=== PATIENT | female | born 1945 | race Caucasian/White ===

== ENCOUNTER 2022-09-18 16:05 | Inpatient (IN) | payer MEDICARE, MEDICAID ==
[~2022-09-18] VITALS: Ht 165.1 cm; Wt 78.0 kg
[2022-09-18] MEDS ORDERED: IV NS 0.9% 1,000 ML BAG IV ONE (17:30)
[2022-09-18] MEDS ORDERED: ONDANSETRON HCL/PF 4 MG/2 ML VIAL IVP ONE (17:30)
[2022-09-18] MEDS ORDERED: MORPHINE SULFATE INJ 2 MG/ML DISP.SYRIN IV ONE ×2 (17:30→22:00)
[2022-09-18 17:52] LABS: BASOPHILS % (AUTO) 0.5 % (0.0-2.0); EOSINOPHILS % (AUTO) 0.9 % (0.0-6.0); HEMATOCRIT 39 % (33-45); HEMOGLOBIN 12.1 g/dL (11.5-14.8); LYMPHOCYTES % (AUTO) 17.4 % (20.0-44.0); MEAN CORPUSCULAR HGB CONC 31 g/dl (31.0-36.0); MEAN CORPUSCULAR VOLUME 76 fL (82-100); MONOCYTES # (AUTO) 0.6 K/uL (0.1-1.30); MONOCYTES % (AUTO) 9.6 % (2.0-12.0); NEUTROPHILS # (AUTO) 4.1 K/uL (1.8-8.9); NEUTROPHILS % (AUTO) 71.6 % (43.0-81.0); PLATELET COUNT (AUTO) 126 K/uL (150-450); RED BLOOD CELL COUNT(AUTO) 5.09 MIL/uL (4.0-5.2); WHITE BLOOD COUNT (AUTO) 5.7 K/uL (4.3-11.0)
[2022-09-18 18:44] LABS: CALCIUM, SERUM 9.5 mg/dL (8.5-10.1); CARBON DIOXIDE 24 mmol/L (21-32); CHLORIDE 107 mmol/L (98-107); GLUCOSE 95 mg/dL (74-106); POTASSIUM 3.7 mmol/L (3.5-5.1); SODIUM SERUM 141 mmol/L (136-145); UREA NITROGEN, BLOOD 25 mg/dL (7-18)
[2022-09-18 18:48] LABS: ALANINE AMINOTRANSFERASE 19 U/L (12-78); ALBUMIN 3.8 g/dL (3.4-5.0); ALKALINE PHOSPHATASE 108 U/L (46-116); ASPARTATE AMINOTRANSFERASE 33 U/L (15-37); BILIRUBIN,DIRECT 0.6 mg/dL (0.0-0.2); BILIRUBIN,TOTAL 1.8 mg/dL (0.2-1.0); LIPASE 380 U/L (73-393); TOTAL PROTEIN, SERUM 8.1 g/dL (6.4-8.2)
[2022-09-18] MEDS ORDERED: ONDANSETRON HCL/PF 4 MG/2 ML VIAL ONE ×2 (18:52→22:02)
[2022-09-18] MEDS ORDERED: MORPHINE SULFATE INJ 4 MG/ML DISP.SYRIN ONE (18:53)
[2022-09-18] MEDS ORDERED: IOHEXOL-300 100 ML VIAL IV ONE (19:39)
[2022-09-18] MEDS ORDERED: IV NS 0.9% 250 ML IV ONE (19:39)
--- NOTE | 2022-09-18 20:34 | NUR ---
rn note urine sample taken and sent to lab.
[2022-09-18 21:56] LABS: BILIRUBIN,URINE NEGATIVE (NEGATIVE); COLOR,URINE YELLOW (YELLOW); LEUKOCYTE ESTERASE ,URINE NEGATIVE (NEGATIVE); NITRITE, URINE NEGATIVE (NEGATIVE); PROTEIN,URINE TRACE mg/dl (NEGATIVE); UGLUCOSE NEGATIVE (NEGATIVE)
--- NOTE | 2022-09-18 21:58 | NUR ---
RN NOTE COVID SWAB DONE AND SENT TO LAB.
[2022-09-18] MEDS ORDERED: ONDANSETRON HCL/PF 4 MG/2 ML VIAL IV ONE (22:00)
[2022-09-18] MEDS ORDERED: MORPHINE SULFATE INJ 2 MG/ML DISP.SYRIN ONE (22:03)
[2022-09-18 22:11] LABS: BACTERIA,URINE Few /HPF (None Seen); RBC,URINE 0-2 /HPF (0-2); SQUAMOUS EPITHELIAL CELL,UR Few /HPF (None Seen); WBC,URINE NONE SEEN /HPF (0-3)
[2022-09-19] MEDS ORDERED: ACETAMINOPHEN 325 MG TABLET PO PRN (00:30)
[2022-09-19] MEDS ORDERED: IV NS 0.9% 1,000 ML IV SCH (00:30)
--- NOTE | 2022-09-19 00:49 | NUR ---
RN NOTE REPORT GIVEN TO Lopez WOLFE RN.
--- NOTE | 2022-09-19 00:54 | NUR ---
pt transported to 3rd floor via acls protocol
[2022-09-19 01:00] VITALS: BP 140/77
--- NOTE | 2022-09-19 01:30 | NUR ---
BIOCHEMISTRY TECHNOLOGIST ADMITTING NOTE PATIENT WAS TRANSFERRED FROM ER TO [facility] - AT 0100H; PATIENT IS A/O X 4, ABLE TO MAKE NEEDS KNOWN, CAN AMBULATE WITH ASSISTANCE; STABLE ON ROOM AIR, BREATHING EVENLY AND NO S/S OF DISTRESS NOTED; WITH IV ACCESS AT [employer] [facility] [employer] G#18 SALINE LOCK; HOOKED TO TELE MONITORING CURRENTLY READING A PACING 60S BPM; ORIENTED TO STAFF AND ROOM; SKIN ASSESSMENT WAS DONE AND NOTED INTACT SKIN; PATIENT'S BELONGINGS ACCOUNTED FOR; VITAL SIGNS TAKEN; SAFETY MEASURES IMPLEMENTED, BED LOCKED IN LOWEST POSITION, SIDE RAILS UP X 2, CALL LIGHT AND TABLE WITHIN REACH; WILL CONTINUE TO MONITOR THROUGHOUT SHIFT
[2022-09-19] MEDS: PANTOPRAZOLE 40 MG VIAL IV SCH ×3 (01:46→17:11)
[2022-09-19] MEDS: ENOXAPARIN SODIUM 40 MG/0.4 ML DISP.SYRIN SQ SCH ×2 (01:47→21:21)
[2022-09-19] MEDS: TRAZODONE 50 MG TABLET PO SCH ×2 (02:53→21:13)
--- NOTE | 2022-09-19 03:00 | NUR ---
APPLICATIONS TRAINER NOTE PATIENT ASKED FOR SLEEP MEDICATION BECAUSE PER PATIENT, SHE IS USUALLY TAKING MEDICATION FOR SLEEP. HOSPITALIST MADE AWARE AND ORDERED TRAZODONE 100MG PO Q HS SCHEDULED.
[2022-09-19 04:00] VITALS: BP 140/71
[2022-09-19] MEDS: MORPHINE SULFATE INJ 2 MG/ML DISP.SYRIN IV PRN (04:20)
[2022-09-19] MEDS ORDERED: LOPERAMIDE HCL (2 MG CAP) 2 MG CAPSULE PO PRN (05:30)
--- NOTE | 2022-09-19 06:55 | NUR ---
READING EFFICIENCY COURSE DIRECTOR CLOSING NOTE PATIENT IS A/O X 4, ABLE TO MAKE NEEDS KNOWN, CAN AMBULATE WITH ASSISTANCE; STABLE ON ROOM AIR, BREATHING EVENLY AND NO S/S OF DISTRESS NOTED; WITH IV ACCESS AT RAC G#18 RUNNING WITH NS AT 75 ML/HR, HOWEVER PT INSISTED ON REMOVING THE FLUIDS WHILE SLEEPING; HOOKED TO TELE MONITORING CURRENTLY READING A PACING 60S BPM; ADMINISTERED MEDICATIONS PRESCRIBED; PATIENT'S NEEDS ATTENDED; MONITORED PATIENT ACCORDINGLY; SAFETY MEASURES IMPLEMENTED, BED LOCKED IN LOWEST POSITION, SIDE RAILS UP X 2, CALL LIGHT AND TABLE WITHIN REACH; WILL ENDORSE TO AM NURSE FOR THEODORE.
--- NOTE | 2022-09-19 07:59 | NUR ---
FLOTATION TENDER OPENING NOTE PATIENT IS A/O X 4, ABLE TO MAKE NEEDS KNOWN, CAN AMBULATE WITH ASSISTANCE; STABLE ON ROOM AIR, BREATHING EVENLY AND NO S/S OF DISTRESS NOTED; WITH IV ACCESS AT [facility] G#18. HOOKED TO TELE MONITORING CURRENTLY READING A PACING 60S BPM; SAFETY MEASURES IMPLEMENTED, BED LOCKED IN LOWEST POSITION, SIDE RAILS UP X 2, CALL LIGHT AND TABLE WITHIN REACH; WILL CONTINUE TO MONITOR
[2022-09-19] MEDS ORDERED: POTA10CA43 PO (15:57)
[2022-09-19] MEDS ORDERED: LORA10TA7 PO (15:58)
[2022-09-19 16:00] VITALS: BP 129/71
[2022-09-19] MEDS ORDERED: MONT10TA22 PO (16:10)
[2022-09-19] MEDS ORDERED: PRED5TAB48 PO (16:10)
[2022-09-19] MEDS ORDERED: HYDR28.316 TP (16:10)
[2022-09-19] MEDS ORDERED: METO25TA4 PO (16:10)
[2022-09-19] MEDS ORDERED: ATOR20TA PO (16:10)
[2022-09-19] MEDS ORDERED: GABA-536 PO (16:10)
[2022-09-19] MEDS ORDERED: FURO40TA5 PO (16:10)
[2022-09-19] MEDS ORDERED: MAGN400T8 PO (16:18)
[2022-09-19] MEDS ORDERED: CYCL30DR EACHEYE ×2 (16:18)
[2022-09-19] MEDS ORDERED: LORA-259 PO (16:18)
[2022-09-19] MEDS ORDERED: PANT40TA49 PO (16:18)
[2022-09-19] MEDS ORDERED: OLOP2.5D12 EACHEYE (16:18)
[2022-09-19] MEDS ORDERED: CALC500T53 PO (16:18)
[2022-09-19] MEDS ORDERED: WARF4TAB72 PO (16:19)
[2022-09-19] MEDS ORDERED: DRON400T6 PO (17:13)
--- NOTE | 2022-09-19 18:40 | NUR ---
RN CLOSING NOTE PT AWAKE & RESTING COMFORTABLY IN BED. PT IS A/O X 4, RESPONSIVE AND FOLLOWS VERBAL COMMAND. PT IS IN RA W/ NO S & SX OF RESPIRATORY DISTRESS @ THIS TIME. PT IV PRESENT ON LEFT FOREARM #22G SALINE LOCK, PATENT, INTACT AND FLUSHES WELL W/ NO S&SX OF INFILTRATION @ SITE NOTED. GENERAL SUPERVISOR HAS BEEN DISCONTINUED BY HOSPITALIST. HOME MEDICATIONS GOT FROM PHARMACY, WAITING FOR HOSPITALIST TO RECONCILE . ALL DUE MEDS GIVEN. SAFETY MEASURES IN IS PLACE. BED IN LOWEST AND LOCKED POSITION. SIDE RAILS UP X 2. BEDSIDE TABLE AND CALL LIGHT IS EASY REACH. BED ALARM IS ON. WILL ENDORSE PT TO THE NEXT SHIFT FOR THEODORE.
[2022-09-19] MEDS: ONDANSETRON HCL/PF 4 MG/2 ML VIAL IVP PRN (19:41)
--- NOTE | 2022-09-19 19:41 | NUR ---
RN notes Pt is feeling nausea. administered zofran as ordered. Pt's daughter at the bedside. safety precautions is maintained. will continue to monitor.
[2022-09-19 20:00] VITALS: BP 132/69
--- NOTE | 2022-09-19 20:16 | NUR ---
CONTROLLER INSTRUCTOR Opening Note Pt in bed, awake, A/O x4, on RA. IV access LFA #22G SL. Fm at bedside. Safety measure in place, bed low, locked, side rails up x2, call light at reach, bed alarm on. Will cont to monitor pt.
--- NOTE | 2022-09-19 21:20 | NUR ---
SUPPLY PERSON Note Notified MD patient's request for Ativan. MD ordered Ativan 1mg tab PO one time.
[2022-09-19] MEDS ORDERED: LORAZEPAM 1 MG TABLET PO ONE (21:30)
--- NOTE | 2022-09-19 21:44 | NUR ---
RN notes Pt is feeling anxious and requesting ativan. administered ativan/po/one time as ordered. safety precautions is maintained. will continue to monitor.
[2022-09-19] MEDS: IV NS 0.9% 1,000 ML IV PRN (23:04)
[2022-09-20] MEDS: ONDANSETRON HCL/PF 4 MG/2 ML VIAL IVP PRN (05:34)
--- NOTE | 2022-09-20 05:34 | NUR ---
RN notes Pt is feeling nausea. no emesis. administered zofran/iv as ordered. safety precautions is maintained. will continue to monitor.
--- NOTE | 2022-09-20 07:00 | NUR ---
MS RN OPENING NOTES: RECEIVED PATIENT IN BED, ALERT/AWAKE AND ORIENTED X 4 AND ABLE TO MAKE NEEDS KNOWN. NO SOB OR CARDIAC DISTRESS NOTED.PT DENIES PAIN AT THIS TIME.ON CLEAR LIQUIDS. IV ACCESS ON RAC GAUGE 18 PATENT AND INTACT AND INFUSING NS 1L@M 75ML/HR. SAFETY MEASURES MAINTAIN. BED LOCKED AND IN LOWEST POSITION. SIDE RAILS UP X2. CALL LIGHT IN EASY REACH AND WILL MONITOR ACCORDINGLY.
[2022-09-20 07:03] LABS: BASOPHILS % (AUTO) 0.8 % (0.0-2.0); EOSINOPHILS % (AUTO) 3.4 % (0.0-6.0); HEMATOCRIT 34 % (33-45); HEMOGLOBIN 10.8 g/dL (11.5-14.8); LYMPHOCYTES # (AUTO) 0.9 K/uL (0.8-4.8); LYMPHOCYTES % (AUTO) 44.1 % (20.0-44.0); MEAN CORPUSCULAR HGB CONC 32 g/dl (31.0-36.0); MEAN CORPUSCULAR VOLUME 76 fL (82-100); MONOCYTES # (AUTO) 0.3 K/uL (0.1-1.30); MONOCYTES % (AUTO) 14.7 % (2.0-12.0); NEUTROPHILS # (AUTO) 0.7 K/uL (1.8-8.9); PLATELET COUNT (AUTO) 79 K/uL (150-450); RED BLOOD CELL COUNT(AUTO) 4.46 MIL/uL (4.0-5.2)
[2022-09-20 07:18] LABS: ALBUMIN 3.3 g/dL (3.4-5.0); BILIRUBIN,TOTAL 1.5 mg/dL (0.2-1.0); CALCIUM, SERUM 8.8 mg/dL (8.5-10.1); CREATININE 0.9 mg/dL (0.6-1.3); POTASSIUM 3.5 mmol/L (3.5-5.1); TOTAL PROTEIN, SERUM 7.2 g/dL (6.4-8.2)
--- NOTE | 2022-09-20 07:35 | NUR ---
DIGITAL CAMPAIGN SPECIALIST Closing Note Pt in bed, awake, A/O x4, on RA, no s/s of SOB/distress/pain. IV access LFA #22G SL, in place, patent, no s/s of infiltration/infection. Safety measure in place, bed low, locked, side rails up x2, call light at reach, bed alarm on. Endorse to the next shift nurse to cont to monitor pt.
[2022-09-20] MEDS: PANTOPRAZOLE 40 MG VIAL IV SCH (08:49)
[2022-09-20] MEDS ORDERED: LORAZEPAM 1 MG TABLET PO PRN (10:00)
[2022-09-20] MEDS: DRONEDARONE HYDROCHLORIDE 400 MG TABLET PO SCH (10:31)
[2022-09-20] MEDS: ATORVASTATIN 10 MG TABLET PO SCH (10:31)
--- NOTE | 2022-09-20 12:20 | NUR ---
RN NOTES: CALLED LAB ([facility]) FOR STOOL SPECIMEN BLEACHER PULP.
[2022-09-20] MEDS: MORPHINE SULFATE INJ 2 MG/ML DISP.SYRIN IV PRN (13:05)
[2022-09-20] MEDS: GABAPENTIN 300 MG CAPSULE PO SCH (16:33)
[2022-09-20] MEDS: WARFARIN SODIUM 5 MG TABLET PO SCH (16:41)
[2022-09-20] MEDS ORDERED: Medication Not On Formulary EA (Cyclosporine (Restasis) 1 DROP) EACHEYE SCH (17:00)
[2022-09-20] MEDS ORDERED: PANTOPRAZOLE 40 MG/PACK PACK PO SCH (17:00)
--- NOTE | 2022-09-20 18:41 | NUR ---
MS RN CLOSING NOTES: PATIENT IN BED AWAKE, ALERT AND ORIENTED X 4 AND ABLE TO MAKE NEESS KNOWN. NO SOB OR CARDIAC DISTRESS NOTED. ON PAIN MANAGEMENT ORDERED. NO NAUSEA OR VOMITING REPORTED. IV ACCESS ON RIGHT AC PATENT INTACT AND INFUSING NS 1L @75ML/HR.SAFETY MEASURES MAINTAINED: BED LOCKED AND IN LOWEST POSITION, SIDE RAILS UP X 2. CALL LIGHT IN EASY REACH FOR HELP. WILL ENDORSE TO [facility] SHIFT FOR CONTINUITY OF CARE.
[2022-09-20 20:00] VITALS: BP 135/73
[2022-09-20 21:03] LABS: EOSINOPHILS % (MANUAL) 8 % (0-4); LYMPHOCYTES % (MANUAL) 44 % (16-48); MONOCYTES % (MANUAL) 2 % (0-11.0); NEUTROPHILS % (MANUAL) 46 (42-76)
[2022-09-20] MEDS: METOPROLOL SUCCINATE 25 MG TAB.SR.24H PO SCH (21:04)
[2022-09-20] MEDS: TRAZODONE 50 MG TABLET PO SCH (21:05)
--- NOTE | 2022-09-20 22:06 | NUR ---
FLIGHT COMMUNICATIONS SPECIALIST Opening Note Pt in bed, awake, A/O x4, on RA. IV access on RAC #18G infusing NS @ 75 ml/h. Safety measures in place, bed low, bed locked, side rails up x2, call light at reach. Will cont to monitor pt.
[2022-09-21] MEDS: MORPHINE SULFATE INJ 2 MG/ML DISP.SYRIN IV PRN (01:06)
--- NOTE | 2022-09-21 01:06 | NUR ---
RN notes Pt is complaining of abd pain and requesting pain med. administered morphine as ordered for pain. vs is stable. safety precautions is maintained. will continue to monitor.
--- NOTE | 2022-09-21 07:00 | NUR ---
MS RN OPENING NOTES: RECEIVED PATIENT IN BED, ALERT/AWAKE AND ORIENTED X 4 AND ABLE TO MAKE NEEDS KNOWN. NO SOB OR CARDIAC DISTRESS NOTED.PT DENIES PAIN AT THIS TIME. IV ACCESS ON RFA GAUGE 22 PATENT AND INTACT AND INFUSING NS 1L@M 75ML/HR. SAFETY MEASURES MAINTAIN. BED LOCKED AND IN LOWEST POSITION. SIDE RAILS UP X2. CALL LIGHT IN EASY REACH AND WILL MONITOR ACCORDINGLY.
[2022-09-21 07:09] LABS: CALCIUM, SERUM 8.7 mg/dL (8.5-10.1); CREATININE 0.9 mg/dL (0.6-1.3); POTASSIUM 3.3 mmol/L (3.5-5.1)
[2022-09-21 08:00] VITALS: BP 131/58
[2022-09-21] MEDS: DRONEDARONE HYDROCHLORIDE 400 MG TABLET PO SCH (08:46)
[2022-09-21] MEDS: MONTELUKAST SODIUM (10MG) 10 MG TABLET PO SCH (08:46)
[2022-09-21] MEDS: GABAPENTIN 300 MG CAPSULE PO SCH ×2 (08:47→17:00)
[2022-09-21] MEDS: ATORVASTATIN 10 MG TABLET PO SCH (08:47)
[2022-09-21] MEDS: CALCIUM CARBONATE (1250) 500 MG TABLET PO SCH (08:47)
[2022-09-21] MEDS: PANTOPRAZOLE 40 MG TABLET.DR PO SCH (08:47)
[2022-09-21] MEDS: MAGNESIUM OXIDE 400 MG TABLET PO SCH (08:48)
[2022-09-21] MEDS: OLOPATADINE HCL 0.1% OPHTH BOTTLE EACHEYE SCH (08:49)
[2022-09-21] MEDS: PHENYLEPHRINE/SHK LV/MO/PET,WH 30 GM TUBE RC SCH (08:50)
[2022-09-21] MEDS ORDERED: DRONEDARONE HYDROCHLORIDE 400 MG TABLET PO SCH (09:00)
--- NOTE | 2022-09-21 09:00 | NUR ---
RN NOTES: PATIENT STATED SHE HAD A GOOD BREAKFAST, SEEN PATIENT EATING SCRAMBLED EGG.
[2022-09-21] MEDS ORDERED: METOCLOPRAMIDE HCL 10 MG/2 ML VIAL IV ONE (11:00)
[2022-09-21] MEDS ORDERED: POTASSIUM CHLORIDE 20 MEQ TAB.PRT.SR PO SCH (11:00)
--- NOTE | 2022-09-21 11:25 | NUR ---
RN NOTES: SEEN AND EXAMINED BY DR RIVERA AND NOTED THAT PT IS NAUSEATED, DR RIVERA ORDERED ONE DOSE REGLAN IV. INFORMED DR RIVERA THAT PT HAD GOOD APPETITE AND ATE BREAKFAST BUT AFTER TAKING MEDS SHE DIDN'T FEEL GOOD. PT WILL BE MONITORED AFTER LUNCH TO SEE IF THERE'S NAUSEA OR VOMITING THEN SHE WILL BE DC TODAY.
--- NOTE | 2022-09-21 13:18 | NUR ---
RN NOTES: PT DID NOT EAT LUNCH. I EXPLAINED TO HER THAT I GAVE METOCLOPRAMIDE IV TO HER TO CEASE NAUSEA AND VOMITING. BECAUSE PT STATED THAT IF SHE WILL VOMIT SHE WILL FEEL BETTER. PT IS VERY CONCERNED ABOUT BEING DC TODAY BEC HIS SON IS WORKING. INFORMED DR DONNIE RIVERA AND STATED "OKAY" WILL MONITOR PT ACCORDINGLY.
[2022-09-21 16:00] VITALS: BP 134/64
[2022-09-21] MEDS: WARFARIN SODIUM 5 MG TABLET PO SCH (17:26)
[2022-09-21] MEDS: METOCLOPRAMIDE HCL 10 MG/10 ML UDC PO SCH (17:30)
--- NOTE | 2022-09-21 17:55 | NUR ---
RN NOTES: PATIENT REFUSED DINNER, GABAPENTIN AND LIQUID REGLAN.
--- NOTE | 2022-09-21 18:49 | NUR ---
MS RN CLOSING NOTES: PATIENT IN BED AWAKE, ALERT AND ORIENTED X 4 AND ABLE TO MAKE NEEDS KNOWN. NO SOB OR CARDIAC DISTRESS NOTED. ON PAIN MANAGEMENT ORDERED. NO N/V AT THIS TIME,HAVE PRN FOR NAUSEA ORDERED. IV ACCESS ON RIGHT FOREARM GAUGE 22 PATENT INTACT AND INFUSING NS 1L @75ML/HR.SAFETY MEASURES MAINTAINED: BED LOCKED AND IN LOWEST POSITION, SIDE RAILS UP X 2. CALL LIGHT IN EASY REACH FOR HELP. WILL ENDORSE TO BEVERAGE DISTILLER FOR CONTINUITY OF CARE.
--- NOTE | 2022-09-21 19:31 | NUR ---
MS MUCK MINER BLASTING INITIAL NOTES Received pt in bed awake and alert , no signs of any discomfort or any distress noted. Re- oriented where she at and how to used the call light system and at the same time encourage her to use it if she needs some help or needs the nurse. IVF Ns at 75ml/hr infusing at this time on her right forearm patent and intact. Kept her warm and comfortable at all times. bed in low and lock in position with side rails x2 up and bed alarm set for safety. Will continue monitoring.
[2022-09-21 20:00] VITALS: BP 142/68
[2022-09-21] MEDS: TRAZODONE 50 MG TABLET PO SCH (21:47)
[2022-09-21] MEDS: METOPROLOL SUCCINATE 25 MG TAB.SR.24H PO SCH (22:00)
--- NOTE | 2022-09-22 | NUR ---
MS KALA NOTES Checked patient she's sleeping at this time , no signs of any discomfort noted. Breathing even and non-labored. IVF hold at this time per pt requested to helped her to sleep . Pt tolerated po well no aspiration noted. Kept her warm and comfortable at all times. will continue monitoring. place call light at reach.
[2022-09-22 07:17] LABS: CALCIUM, SERUM 8.6 mg/dL (8.5-10.1); CARBON DIOXIDE 26 mmol/L (21-32); CHLORIDE 107 mmol/L (98-107); CREATININE 0.7 mg/dL (0.6-1.3); GLUCOSE 84 mg/dL (74-106); POTASSIUM 3.3 mmol/L (3.5-5.1); SODIUM SERUM 140 mmol/L (136-145); UREA NITROGEN, BLOOD 8 mg/dL (7-18)
--- NOTE | 2022-09-22 07:29 | NUR ---
MS SALES OPERATIONS ASSISTANT CLOSING NOTES PT REMAINS SLEEPING BUT AROUSE EASILY, STABLE THROUGHOUT THE NIGHT. ALL DUE MEDS GIVEN AND ALL NEEDS MET. KEPT HER WARM AND COMFORTABLE AT ALL TIMES. DENIES ANY PAIN OR ANY DISCOMFORT. BED IN LOW AND LOCK IN POSITION WITH SIDE RAILS X2 UP. I INTRODUCE THE AM NURSE AND PT STATED "THANK YOU SO MUCH". WILL CONTINUE MONITORING.
[2022-09-22] MEDS: METOCLOPRAMIDE HCL 10 MG/10 ML UDC PO SCH ×3 (07:30→17:06)
--- NOTE | 2022-09-22 07:30 | NUR ---
RN MS NOTES PT IN BED, AWAKE, ALERT AND ORIENTED, NO COMPLAINT OF PAIN OR ANY DISCOMFORT AT THIS TIME, BREATHING PATTERN NORMAL, CALL LIGHT WITHIN REACH, NEEDS ATTENDED.
[2022-09-22 08:00] VITALS: BP 121/59
[2022-09-22] MEDS: PANTOPRAZOLE 40 MG TABLET.DR PO SCH (08:21)
[2022-09-22] MEDS: MAGNESIUM OXIDE 400 MG TABLET PO SCH (08:21)
[2022-09-22] MEDS: ATORVASTATIN 10 MG TABLET PO SCH (08:21)
[2022-09-22] MEDS: CALCIUM CARBONATE (1250) 500 MG TABLET PO SCH (08:21)
[2022-09-22] MEDS: DRONEDARONE HYDROCHLORIDE 400 MG TABLET PO SCH (08:21)
[2022-09-22] MEDS: GABAPENTIN 300 MG CAPSULE PO SCH ×2 (08:21→16:36)
[2022-09-22] MEDS: MONTELUKAST SODIUM (10MG) 10 MG TABLET PO SCH (08:21)
[2022-09-22] MEDS: PHENYLEPHRINE/SHK LV/MO/PET,WH 30 GM TUBE RC SCH (08:29)
[2022-09-22] MEDS: OLOPATADINE HCL 0.1% OPHTH BOTTLE EACHEYE SCH (08:34)
[2022-09-22] MEDS: MORPHINE SULFATE INJ 2 MG/ML DISP.SYRIN IV PRN ×2 (08:54→19:49)
[2022-09-22] MEDS: POTASSIUM CHLORIDE 20 MEQ POWDER PACKET PO SCH ×2 (10:30→11:58)
--- NOTE | 2022-09-22 13:29 | NUR ---
RN MS NOTES PT SEEN AND EXAMINED BY DR. RIVERA, PLAN OF CARE DISCUSSED WITH PT, VERBALIZED UNDERSTANDING.
[2022-09-22 16:00] VITALS: BP 123/63
[2022-09-22] MEDS ORDERED: POTASSIUM CHLORIDE 20 MEQ TAB.PRT.SR PO ONE (16:30)
[2022-09-22] MEDS: WARFARIN SODIUM 5 MG TABLET PO SCH (16:37)
--- NOTE | 2022-09-22 18:11 | NUR ---
RN MS NOTES PT IN BED, AWAKE, ALERT AND ORIENTED, NO COMPLAINT OF PAIN, NOT IN DISTRESS, WALKED ALONG THE HALLWAY VIA WALKER WITH STANDBY ASSISTANCE, PM MEDS GIVEN ORDERED, IV FLUIDS INFUSING, ALL NEEDS ATTENDED.
--- NOTE | 2022-09-22 19:30 | NUR ---
MS RN OPENING NOTE RECEIVED PATIENT FROM AM NURSE; PATIENT IS A/O X 4, ABLE TO MAKE NEEDS KNOWN, CAN AMBULATE WITH ASSISTANCE; WITH RELATIVES AT BEDSIDE; STABLE ON ROOM AIR, BREATHING EVENLY AND NO S/S OF DISTRESS NOTED; WITH IV ACCESS AT [facility] G#22 SALINE LOCK; ENCOURAGED VERBALIZATION OF NEEDS; SAFETY MEASURES IMPLEMENTED, BED LOCKED IN LOWEST POSITION, SIDE RAILS UP X 2, CALL LIGHT AND TABLE WITHIN REACH; WILL CONTINUE TO MONITOR THROUGHOUT SHIFT
[2022-09-22 20:00] VITALS: BP 149/92
[2022-09-22] MEDS: METOPROLOL SUCCINATE 25 MG TAB.SR.24H PO SCH (21:25)
[2022-09-22] MEDS: TRAZODONE 50 MG TABLET PO SCH (21:25)
[2022-09-23] MEDS: IV NS 0.9% 1,000 ML IV PRN (06:32)
--- NOTE | 2022-09-23 06:51 | NUR ---
MS RN CLOSING NOTE PATIENT AWAKE IN BED, A/O X 4, ABLE TO MAKE NEEDS KNOWN, CAN AMBULATE WITH ASSISTANCE; STABLE ON ROOM AIR, BREATHING EVENLY AND NO S/S OF DISTRESS NOTED; WITH IV ACCESS AT RFA G#22 SALINE LOCK; ADMINISTERED MEDICATIONS PRESCRIBED; PATIENT'S NEEDS ATTENDED; MONITORED PATIENT ACCORDINGLY; SAFETY MEASURES IMPLEMENTED, BED LOCKED IN LOWEST POSITION, SIDE RAILS UP X 2, CALL LIGHT AND TABLE WITHIN REACH; WILL ENDORSE TO AM NURSE FOR THEODORE.
[2022-09-23 06:56] LABS: CALCIUM, SERUM 8.9 mg/dL (8.5-10.1); CREATININE 0.8 mg/dL (0.6-1.3); POTASSIUM 3.8 mmol/L (3.5-5.1)
[2022-09-23 07:00] VITALS: BP 119/63
[2022-09-23] MEDS: METOCLOPRAMIDE HCL 10 MG/10 ML UDC PO SCH ×4 (07:30→17:30)
--- NOTE | 2022-09-23 07:40 | NUR ---
MS RN OPENING NOTES: RECEIVED PATIENT AWAKE IN BED, A/O X 4, ABLE TO MAKE NEEDS KNOWN, AMBULATES WITH STANDBY ASSISTANCE. STABLE ON ROOM AIR, BREATHING EVENLY AND NO S/S OF DISTRESS NOTED. IV ACCESS AT RFA G#22 SALINE LOCK, PATENT AND INTACT. SAFETY MEASURES IMPLEMENTED, BED LOCKED IN LOWEST POSITION, SIDE RAILS UP X 2, CALL LIGHT AND TABLE WITHIN REACH; WILL CONTINUE WITH PLAN OF ARE DURING SHIFT.
[2022-09-23] MEDS: MONTELUKAST SODIUM (10MG) 10 MG TABLET PO SCH (08:27)
[2022-09-23] MEDS: ATORVASTATIN 10 MG TABLET PO SCH (08:27)
[2022-09-23] MEDS: DRONEDARONE HYDROCHLORIDE 400 MG TABLET PO SCH (08:27)
[2022-09-23] MEDS: GABAPENTIN 300 MG CAPSULE PO SCH ×3 (08:27→17:02)
[2022-09-23] MEDS: PANTOPRAZOLE 40 MG TABLET.DR PO SCH (08:28)
[2022-09-23] MEDS: CALCIUM CARBONATE (1250) 500 MG TABLET PO SCH (08:29)
[2022-09-23] MEDS: MAGNESIUM OXIDE 400 MG TABLET PO SCH (08:29)
[2022-09-23] MEDS: OLOPATADINE HCL 0.1% OPHTH BOTTLE EACHEYE SCH (09:23)
[2022-09-23] MEDS: PHENYLEPHRINE/SHK LV/MO/PET,WH 30 GM TUBE RC SCH (09:28)
[2022-09-23] MEDS: ONDANSETRON HCL/PF 4 MG/2 ML VIAL IVP PRN (10:14)
[2022-09-23] MEDS ORDERED: METO5SOL2 PO (11:33)
[2022-09-23] MEDS ORDERED: DRON400T6 PO (11:33)
[2022-09-23] MEDS ORDERED: WARF5TAB8 PO (11:33)
[2022-09-23] MEDS ORDERED: TRAZ-252 PO (11:33)
[2022-09-23] MEDS: MORPHINE SULFATE INJ 2 MG/ML DISP.SYRIN IV PRN (11:45)
[2022-09-23] MEDS ORDERED: TRAM50TA2 PO (11:50)
--- NOTE | 2022-09-23 12:15 | NUR ---
RN NOTES; PT REFUSED PO REGLAN, PT STATES SHE PREFERS THE IV ZOFRAN SINCE IT SEEMS MORE EFFECTIVE, PER PT.
[2022-09-23] MEDS ORDERED: ONDA4TAB5 PO (13:35)
--- NOTE | 2022-09-23 14:20 | NUR ---
RN NOTES: PT'S VITALS WNL, NO S/S OF SOB ON RA, DENIES PAIN AT THIS TIME. BLOOD TRANSFUSION INITIATED, WILL CONT TO MONITOR PER PROTOCOL. Addendum: 09/23/22 at 1436 by ROBERT KEVIN RN PLS DISREGARD THIS NOTE FOR THIS PATIENT
[2022-09-23 16:00] VITALS: BP 128/73
[2022-09-23] MEDS ORDERED: WARFARIN SODIUM 5 MG TABLET PO SCH (17:00)
[2022-09-23] MEDS ORDERED: WARFARIN SODIUM 1 MG TABLET PO SCH (17:00)
--- NOTE | 2022-09-23 18:25 | NUR ---
RN DC NOTES: PT IS STABLE ON RA WITH NO S/S OF SOB OR ACUTE DISTRESS, VITALS WNL. DISCUSSED DC INSTRUCTIONS, BELONGINGS AND NEW MEDICATIONS WITH PATIENTS, ADDRESSED QUESTIONS AND CONCERNS, VERBALIZED UNDERSTANDING, SIGNED DOCUMENTS. IV ACCESS AND ID BAND REMOVED. PT LEFT UNIT VIA WHEELCHAIR, ESCORTED BY RN AND DAUGHTER TO LOBBY, PT LEFT VIA PRIVATE CAR.
== END 2022-09-23 18:20 | disposition home health service (06) | DRG 392 ==
LOC: ER 16:07 → TELE 09-19 00:07 → MED 09-19 19:10
PROVIDERS: ADMIT Nurse Practitioner Acute Care; ATTEND Nurse Practitioner Acute Care
DX: A08.4 Viral intestinal infection, unspecified (principal); I48.20 Chronic atrial fibrillation, unspecified; E86.0 Dehydration; I10 Essential (primary) hypertension; Z20.822 Contact with and (suspected) exposure to COVID-19; Z95.5 Presence of coronary angioplasty implant and graft; I25.10 Atherosclerotic heart disease of native coronary artery without angina pectoris; H40.9 Unspecified glaucoma; Z95.2 Presence of prosthetic heart valve; Z95.0 Presence of cardiac pacemaker; Z90.49 Acquired absence of other specified parts of digestive tract; E80.6 Other disorders of bilirubin metabolism; R79.89 Other specified abnormal findings of blood chemistry; R79.1 Abnormal coagulation profile; E78.5 Hyperlipidemia, unspecified; Z79.01 Long term (current) use of anticoagulants; F41.9 Anxiety disorder, unspecified
CPT/HCPCS: 36415; 71045-TC; 80048-TC; 80053-TC; 80076-TC; 81001; 83605-TC; 83690-TC; 83735-TC; 84100-TC; 84484-TC; 85025-TC; 85610-TC; 85730-TC; 87081-TC; 97116-TC; 97530-TC; A4223; C9113; C9803; G0378; J1650; J2270; J2405; J2765; J7030; J7050; J8597; Q9967